=== PATIENT | female | born 1980 | race African-American/Black ===

== ENCOUNTER 2020-09-03 04:14 | Emergency (ER) | payer SELFPAY ==
[~2020-09-03] VITALS: Ht 160 cm; Wt 79.5 kg
[2020-09-03] MEDS ORDERED: LISINOPRIL (04:31)
[2020-09-03] MEDS ORDERED: AMLODIPINE 10MG TABLET PO ONE (05:15)
[2020-09-03] MEDS ORDERED: LORAZEPAM 0.5MG TABLET PO ONE (05:15)
[2020-09-03] MEDS ORDERED: NITROGLYCERIN 0.4MG TABLET SL SL PRN (05:45)
[2020-09-03] MEDS ORDERED: ASPIRIN 81MG TABLET PO ONE (05:45)
[2020-09-03 06:05] LABS: BASOPHILS % 0.7 % (0.0-2.0); CHLORIDE 103 mEq/L (98-107); EOSINOPHILS % 3.3 % (0.0-5.0); HEMOGLOBIN. 10.8 g/dL (12.0-16.0); MEAN CORPUSCULAR HEMOGLOBIN 22.2 pg (28.0-32.0); MEAN CORPUSCULAR VOLUME 71.9 fL (81.0-99.0); MEAN PLATELET VOLUME 8.7 fl (7.4-10.4); MONOCYTES % 14.4 % (2.0-8.0); NEUTROPHILS % 55.6 % (40.0-76.0); PLATELET 407 x1000/uL (130-400); RED BLOOD CELL COUNT 4.86 mill/uL (4.2-5.4); RED CELL DISTRIBUTION WIDTH 16.6 % (11.6-14.6)
[2020-09-03 06:11] LABS: HCG SCREEN NEGATIVE
[2020-09-03 06:24] LABS: D-DIMER 1.66 mg/L FEU (<0.50); PARTIAL THROMBOPLASTIN TIME 23.6 sec (23.4-31.0); PROTHROMBIN TIME 10.9 sec (9.6-11.0)
[2020-09-03] MEDS ORDERED: POTASSIUM CHLORIDE 20MEQ TABLET SR PO ONE (06:30)
[2020-09-03] MEDS ORDERED: CEFTRIAXONE 1 G PREMIX 50 ML IV ONE (06:45)
[2020-09-03] MEDS ORDERED: AZITHROMYCIN 500 MG in DEXT 5% WATER 250 ML IV ONE (06:45)
[2020-09-03 07:35] LABS: CLARITY URINE CLEAR (CLEAR); COLOR URINE YELLOW (YELLOW); KETONES URINE NEGATIVE (NEGATIVE); LEUKOCYTE ESTERASE URINE NEGATIVE (NEGATIVE); NITRITE URINE NEGATIVE (NEGATIVE); OCCULT BLOOD URINE NEGATIVE (NEGATIVE); PROTEIN URINE TRACE (NEGATIVE); SPECIFIC GRAVITY URINE 1.017 (1.005-1.030); UROBILINOGEN URINE 0.2 E.U./dL (0.2-1.0)
[2020-09-03] MEDS ORDERED: IOHEXOL-350 100 ML BOTTLE ONE (09:04)
[2020-09-03 10:00] VITALS: BP 180/94
== END 2020-09-03 10:34 | disposition left against medical advice (07) ==
LOC: ER 04:14 → CANBEDREQ 10:33 → ER 10:34
DX: R07.89 Other chest pain (principal); R06.02 Shortness of breath; E87.6 Hypokalemia; R94.31 Abnormal electrocardiogram [ECG] [EKG]; F41.9 Anxiety disorder, unspecified; I10 Essential (primary) hypertension; Z20.822 Contact with and (suspected) exposure to COVID-19; Z98.890 Other specified postprocedural states
CPT/HCPCS: 36415; 71045; 71275; 80053; 81003; 83605; 83880; 84484; 84703; 85025; 85379; 85610; 85730; 87040; 87086; 93005; 96365; 96367; 99285; C9803; J0456; J0696; J7060; Q9967; U0003; Z7610